=== PATIENT | female | born 1960 | race Caucasian/White ===

== ENCOUNTER 2018-12-14 09:56 | Emergency (ER) | payer OTHER ==
[~2018-12-14] VITALS: Ht 157.4 cm; Wt 54.4 kg
[~2018-12-14 09:56] MED LIST: ANAPROX DS550 MG PO; CARAFATE1 GM/10 ML PO; DARVOCET N 1001 TAB PO; XANAX0.5 MG PO; ZOFRAN ODT4 MG SL
[2018-12-14] MEDS ORDERED: IBUPROFEN600 MG PO (12:06)
== END 2018-12-14 12:20 | disposition home or self-care (01) ==
LOC: ED 09:56
DX: S82.491A Other fracture of shaft of right fibula, initial encounter for closed fracture (principal); M79.672 Pain in left foot; Z88.5 Allergy status to narcotic agent; Z90.710 Acquired absence of both cervix and uterus; W18.42XA Slipping, tripping and stumbling without falling due to stepping into hole or opening, initial encounter; Y93.01 Activity, walking, marching and hiking; Y92.098 Other place in other non-institutional residence as the place of occurrence of the external cause; Y99.8 Other external cause status

== ENCOUNTER → 2019-06-12 | Outpatient (CLI) | payer OTHER ==
[~2019-06-12] MED LIST changes: +IBUPROFEN600 MG PO
== END | disposition home or self-care (01) ==
LOC: MRI 13:17
DX: R47.9 Unspecified speech disturbances (principal); R47.01 Aphasia; R41.3 Other amnesia

== ENCOUNTER → 2019-07-08 | Outpatient (CLI) | payer OTHER | END | disposition home or self-care (01) | LOC: US 06-20 13:30 | DX: R26.89 Other abnormalities of gait and mobility (principal); R47.9 Unspecified speech disturbances; R41.3 Other amnesia ==

== ENCOUNTER → 2020-04-09 | Outpatient (CLI) | payer OTHER ==
[2020-04-09 08:43] LABS: BASO % 0.5 % (0.0-1.0); EOS # 0.1 10*3/uL (0.0-0.4); EOS % 1.2 % (1.0-4.0); HEMATOCRIT 40.3 % (37.0-47.0); LYMPH # 2.5 10*3/uL (1.3-4.4); LYMPH % 29.9 % (27.0-41.0); MEAN CORPUSCULAR HGB 33.3 pg (27.0-31.0); MEAN PLATELET VOLUME 9.6 fl (9.6-12.3); MONO # 0.4 10*3/uL (0.1-1.0); MONO % 4.5 % (3.0-9.0); NEUT # 5.3 10*3/uL (2.3-7.9); NEUT % 63.7 % (47.0-73.0); PLATELET COUNT AUTOMATED 256 10*3/uL (130-400); RED BLOOD COUNT 3.99 10*6/uL (4.10-5.10); RED CELL DISTRI WIDTH 13.2 % (0-14.5); WHITE BLOOD COUNT 8.4 10*3/uL (4.8-10.8)
[2020-04-09 08:46] LABS: ALKALINE PHOSPHATASE 114 U/L (45-117); BILIRUBIN, DIRECT < 0.1 mg/dL (0.0-0.2); BUN 9 mg/dl (7-24); CHLORIDE 111 mmol/L (98-107); CREATININE 0.88 mg/dL (0.55-1.02); POTASSIUM 3.7 mmol/L (3.5-5.1); SGOT/AST 14 IU/L (3-35); SGPT/ALT 18 U/L (12-78); SODIUM 142 mmol/L (136-145); TOTAL PROTEIN 6.7 gm/dL (6.4-8.2)
[2020-04-09 08:52] LABS: THYROID STIM HORMONE (HS) 0.208 uIU/ml (0.358-4.75)
[2020-04-09 10:24] LABS: VITAMIN D, 25-HYDROXY 51.8 ng/mL (30-100)
== END | disposition home or self-care (01) ==
LOC: LAB 07:59
PROVIDERS: ATTEND Psychiatry & Neurology Neurology
DX: E11.9 Type 2 diabetes mellitus without complications (principal); E55.9 Vitamin D deficiency, unspecified; R41.3 Other amnesia; G62.9 Polyneuropathy, unspecified; R25.1 Tremor, unspecified; E87.6 Hypokalemia